=== PATIENT | female | born 1945 | race Caucasian/White ===

== ENCOUNTER → 2017-12-02 | Outpatient (CLI) | payer MEDICARE, OTHER ==
[~2017-12-02] MED LIST: ASPI-496 PO; ATOR40TA78 PO; LOSA1TAB19 PO; MULT-658 PO
== END | disposition home or self-care (01) ==
LOC: CFH 09:05
PROVIDERS: ATTEND Family Medicine
DX: Z13.820 Encounter for screening for osteoporosis (principal); M81.0 Age-related osteoporosis without current pathological fracture; N95.9 Unspecified menopausal and perimenopausal disorder
CPT/HCPCS: 77080

== ENCOUNTER → 2017-12-19 | Outpatient (CLI) | payer MEDICARE, OTHER | END | disposition home or self-care (01) | LOC: CVU 07:33 | PROVIDERS: ATTEND Internal Medicine Cardiovascular Disease | DX: I65.23 Occlusion and stenosis of bilateral carotid arteries (principal); I08.2 Rheumatic disorders of both aortic and tricuspid valves; I10 Essential (primary) hypertension; E78.5 Hyperlipidemia, unspecified | CPT/HCPCS: 93306; 93880 ==

== ENCOUNTER → 2017-12-22 | Outpatient (CLI) | payer MEDICARE, OTHER | END | disposition home or self-care (01) | LOC: RAD 12:16 | PROVIDERS: ATTEND Internal Medicine Cardiovascular Disease | DX: R06.02 Shortness of breath (principal); R01.1 Cardiac murmur, unspecified; R09.89 Other specified symptoms and signs involving the circulatory and respiratory systems | CPT/HCPCS: 78452; 93017; A9502 ==

== ENCOUNTER 2018-06-25 09:01 | Day surgery (SDC) | payer MEDICARE, OTHER ==
[~2018-06-25] VITALS: Ht 157.5 cm; Wt 69.1 kg
[2018-06-25] MEDS ORDERED: SODIUM CHLORIDE 0.9% 1,000 ML IV ONE (09:08)
[2018-06-25 09:30] VITALS: BP 123/64
[2018-06-25] MEDS ORDERED: ASPIRIN 325 MG TABLET EC PO ONE (09:30)
[2018-06-25] MEDS ORDERED: FENTANYL PF 100 MCG/2ML ONE (09:30)
[2018-06-25] MEDS ORDERED: MIDAZOLAM 1 MG/ML, 2ML ONE (09:30)
[2018-06-25] MEDS ORDERED: SULF1TAB24 PO (09:30)
[2018-06-25] MEDS ORDERED: HEPARIN 1,000 UNITS/ML, 10ML ONE (09:31)
[2018-06-25] MEDS ORDERED: VERAPAMIL 2.5 MG/ML, 2ML ONE (09:31)
[2018-06-25] MEDS ORDERED: MIDAZOLAM 1 MG/ML, 5ML ONE (09:32)
[2018-06-25] MEDS ORDERED: ASPIRIN 325 MG TABLET EC ONE (09:47)
[2018-06-25] MEDS ORDERED: SODIUM CHLORIDE 0.9% 1,000 ML IV SCH (10:43)
== END 2018-06-25 14:20 | disposition home or self-care (01) ==
LOC: OUT 09:01 → CACL 14:20
PROVIDERS: ATTEND Internal Medicine Cardiovascular Disease
DX: I25.118 Atherosclerotic heart disease of native coronary artery with other forms of angina pectoris (principal); I10 Essential (primary) hypertension; E78.00 Pure hypercholesterolemia, unspecified; E66.3 Overweight; E78.5 Hyperlipidemia, unspecified; E78.2 Mixed hyperlipidemia; R41.3 Other amnesia; I35.0 Nonrheumatic aortic (valve) stenosis; Z79.82 Long term (current) use of aspirin; Z79.899 Other long term (current) drug therapy; Z87.440 Personal history of urinary (tract) infections
CPT/HCPCS: 75716; 93454; 93567; 99156; C1769; C1894; J1644; J2250; J3010; Q9967

== ENCOUNTER 2018-09-03 04:51 | Inpatient (IN) | payer MEDICARE, OTHER ==
[2018-09-02 14:18] LABS: MICROSCOPIC NOT IND
[2018-09-02 14:26] LABS: BASOPHILS # (AUTO) 0.08 x10^3/uL (0-0.1); BASOPHILS % (AUTO) 1 % (0-1); EOSINOPHILS % (AUTO) 2 % (1-7); LYMPHOCYTES # (AUTO) 1.88 x10^3/uL (1-3.4); LYMPHOCYTES % (AUTO) 22 % (22-44); MD NO; MEAN CORPUSCULAR HEMOGLOBIN 24.6 pg (27.0-34.8); MEAN CORPUSCULAR HGB CONC 31.7 g/dL (32.4-35.8); MEAN CORPUSCULAR VOLUME 77.8 fL (80-100); MEAN PLATELET VOLUME 8.6 fL (7.4-10.4); MONOCYTES # (AUTO) 0.77 x10^3/uL (0.2-0.8); MONOCYTES % (AUTO) 9 % (2-9); NEUTROPHILS # (AUTO) 5.64 x10^3/uL (1.8-6.8); NEUTROPHILS % (AUTO) 66 % (42-75); PLATELET COUNT 313 x10^3/uL (130-400); RED BLOOD COUNT 4.53 x10^6/uL (3.82-5.3); RED CELL DISTRIBUTION WIDTH 17.7 % (9.6-15.2)
[2018-09-02 14:27] LABS: ALANINE AMINOTRANSFERASE 22 U/L (12-78); ALBUMIN 3.9 g/dL (3.4-5.0); ANION GAP 7 mmol/L (5-15); CALCIUM 9.7 mg/dL (8.5-10.1); CHLORIDE 104 mmol/L (98-107); CREATININE 1.09 mg/dL (0.55-1.02)
[2018-09-02 14:29] LABS: ALKALINE PHOSPHATASE 68 U/L (45-117); BILIRUBIN,TOTAL 0.5 mg/dL (0.2-1.0); TOTAL PROTEIN 7.6 g/dL (6.4-8.2)
[2018-09-02 14:31] LABS: INTERNATIONAL NORMALIZED RATIO 1.04 (0.93-1.1); PROTHROMBIN TIME 10.7 Seconds (9.6-11.5)
[2018-09-02 14:55] LABS: HEMOGLOBIN A1C 5.8 % (4.2-6.3)
[2018-09-03] VITALS (8 sets, daily range): BP systolic 104–159; BP diastolic 51–80
[~2018-09-03] VITALS: Ht 157.5 cm; Wt 68.5 kg
[~2018-09-03 04:51] MED LIST changes: +AMIO200T42 PO; +APIX5TAB PO; +ASPI325T17 PO; +METO25TA35 PO; +METO25TA91 PO; +NITR100C6 PO; +SULF1TAB24 PO
[2018-09-03] MEDS ORDERED: ALBUMIN HUMAN 5% 500 ML IV PRN (05:00)
[2018-09-03] MEDS ORDERED: CHLORHEXIDINE 15 ML UDC MM SCH (05:30)
[2018-09-03] MEDS ORDERED: INSULIN LISPRO 100 UNITS/ML, PEN SQ-INSULIN SCH (05:30)
[2018-09-03] MEDS ORDERED: DO NOT GIVE MC SCH (05:30)
[2018-09-03] MEDS ORDERED: FENTANYL PF 250 MCG/5ML ONE ×4 (06:40→06:41)
[2018-09-03] MEDS ORDERED: MIDAZOLAM 10MG/2 ML ONE (06:40)
[2018-09-03] MEDS ORDERED: ROCURONIUM 10MG/ML,5ML ONE ×2 (06:49)
[2018-09-03] MEDS ORDERED: EPINEPHRINE 1 MG/ML, 1ML ONE (06:49)
[2018-09-03] MEDS ORDERED: AMINOCAPROIC ACID 250 MG/ML, 20ML ONE ×2 (06:49)
[2018-09-03] MEDS ORDERED: PHENYLEPHRINE 10 MG/ML ONE (06:49)
[2018-09-03] MEDS ORDERED: CALCIUM CHLORIDE 10%, 10ML SYR ONE (06:50)
[2018-09-03] MEDS ORDERED: PROPOFOL 10 MG/ML, 20ML ONE (06:54)
[2018-09-03] MEDS ORDERED: VANCOMYCIN 1,100 MG in SODIUM CHLORIDE 0.9% 250 ML IV PRN (07:30)
[2018-09-03] MEDS ORDERED: EPINEPHRINE 2 MG in SODIUM CHLORIDE 0.9% 248 ML IV SCH (07:30)
[2018-09-03] MEDS ORDERED: REGULAR INSULIN 62.5 UNITS in SODIUM CHLORIDE 0.9% 249.375 ML IV PRN ×2 (07:30→10:46)
[2018-09-03] MEDS ORDERED: CEFUROXIME 1.5 GM in SODIUM CHLORIDE 0.9% 50 ML IVPB PRN (07:30)
[2018-09-03] MEDS ORDERED: MANNITOL PMX 20% 500 ML IVPB PRN (07:30)
[2018-09-03] MEDS ORDERED: POTASSIUM CHLORIDE 80 MEQ, SODIUM BICARBONATE 8.4% 10 MEQ, MAGNESIUM SULFATE 0.5 GM, LI... IV PRN (07:30)
[2018-09-03] MEDS ORDERED: PHENYLEPHRINE 10 MG in SODIUM CHLORIDE 0.9% 249 ML IV PRN ×2 (07:30→10:46)
[2018-09-03] MEDS ORDERED: DEXMEDETOMIDINE 200 MCG in SODIUM CHLORIDE 0.9% 48 ML IV SCH (07:30)
[2018-09-03] MEDS ORDERED: PROTAMINE SULFATE 10 MG/ML, 25ML ONE ×2 (08:52)
[2018-09-03] MEDS ORDERED: SODIUM CHLORIDE FLUSH 10ML SYR IVF SCH (09:00)
[2018-09-03] MEDS ORDERED: MUPIROCIN OINT 2%, 22GM TP SCH (09:00)
[2018-09-03] MEDS ORDERED: DOBUTAMINE 250 MG in SODIUM CHLORIDE 0.9% 230 ML IV PRN (10:46)
[2018-09-03] MEDS ORDERED: NITROGLYCERIN/D5W PMX 250 ML IV PRN (10:46)
[2018-09-03] MEDS ORDERED: DEXMEDETOMIDINE 200 MCG in SODIUM CHLORIDE 0.9% 48 ML IV PRN (10:46)
[2018-09-03] MEDS ORDERED: VASOPRESSIN 50 UNIT in SODIUM CHLORIDE 0.9% 247.5 ML IV PRN (10:46)
[2018-09-03] MEDS ORDERED: ACETAMINOPHEN 650 MG SUPP PR PRN (11:00)
[2018-09-03] MEDS ORDERED: SODIUM BICARB 8.4%, 50ML SYRINGE IV PRN (11:00)
[2018-09-03] MEDS ORDERED: MORPHINE SULFATE 4 MG/ML, 1ML IVPush PRN (11:00)
[2018-09-03] MEDS ORDERED: BISACODYL 5 MG EC TABLET PO PRN (11:00)
[2018-09-03] MEDS ORDERED: EPINEPHRINE 2 MG in SODIUM CHLORIDE 0.9% 248 ML IV PRN (11:00)
[2018-09-03] MEDS: KSCALE TO 4.5 IV SCH ×2 (11:00→18:05)
[2018-09-03] MEDS ORDERED: ONDANSETRON 2MG/ML, 2ML IVPush PRN (11:00)
[2018-09-03] MEDS ORDERED: INSULIN REGULAR 100 UNITS/ML, 3ML VIAL IVPush PRN (11:00)
[2018-09-03] MEDS ORDERED: BISACODYL 10 MG SUPP PR PRN (11:00)
[2018-09-03] MEDS ORDERED: PROCHLORPERAZINE 5 MG/ML, 2ML IVPush PRN (11:00)
[2018-09-03] MEDS ORDERED: DEXTROSE 4 GM TAB.CHEW PO PRN (11:00)
[2018-09-03] MEDS ORDERED: DEXTROSE 50%, 50ML SYRINGE IVPush PRN (11:00)
[2018-09-03] MEDS ORDERED: GLUCAGON 1 MG IM PRN (11:00)
[2018-09-03] MEDS ORDERED: SODIUM BICARB 8.4%, 50ML SYRINGE ONE (11:15)
[2018-09-03] MEDS ORDERED: LIDOCAINE 2% 100MG/5ML SYRINGE ONE (11:15)
[2018-09-03] MEDS ORDERED: HEPARIN 1,000 UNITS/ML, 30ML ONE (11:16)
[2018-09-03] MEDS ORDERED: methylPREDNISolone SOD SUCC 125 MG/2 ML ONE (11:16)
[2018-09-03] MEDS ORDERED: ALBUMIN HUMAN 25% 50 ML ONE (11:16)
[2018-09-03 11:17] LABS: GLUCOSE BY BLOOD GAS ANALYZER 136 mg/dL (70-110); HEMOGLOBIN BY BLOOD GAS ANALYZ 8.3 g/dL (14.0-18.0); POTASSIUM BY BLOOD GAS ANALYZR 3.4 mmol/L (3.6-5.5)
[2018-09-03 11:20] LABS: FIO2 60 %
[2018-09-03] MEDS ORDERED: FENTANYL PF 100 MCG/2ML ONE (11:25)
[2018-09-03] MEDS: FENTANYL PF 100 MCG/2ML IVPush PRN ×3 (11:26→18:02)
[2018-09-03 11:30] LABS: INTERNATIONAL NORMALIZED RATIO 1.55 (0.93-1.1); PROTHROMBIN TIME 15.8 Seconds (9.6-11.5)
[2018-09-03] MEDS ORDERED: SODIUM CHLORIDE 0.9% 1,000 ML IV PRN (12:00)
[2018-09-03] MEDS: MAGNESIUM SULFATE 1 GM in SODIUM CHLORIDE 0.9% 50 ML IVPB SCH (12:11)
[2018-09-03] MEDS: DOCUSATE 100 MG CAPSULE PO SCH ×2 (12:14→21:00)
[2018-09-03] MEDS: INSULIN LISPRO 100 UNITS/ML, PEN SQ-INSULIN SCH ×3 (12:14→21:00)
[2018-09-03] MEDS ORDERED: POTASSIUM CHLORIDE PMX 100 ML IVPB ONE (12:30)
[2018-09-03] MEDS: LACTATED RINGERS 1,000 ML IV PRN ×2 (14:15→16:22)
[2018-09-03] MEDS: CEFUROXIME 1.5 GM in SODIUM CHLORIDE 0.9% 50 ML IVPB SCH (16:53)
[2018-09-03] MEDS ORDERED: WARFARIN 5 MG TABLET PO-COUM ONE (18:00)
[2018-09-03] MEDS ORDERED: POTASSIUM CHLORIDE PMX 100 ML IV ONE (18:00)
[2018-09-03] MEDS: VANCOMYCIN PMX 1GM/200ML 200 ML IVPB SCH (18:05)
[2018-09-03] MEDS: OXYcodone IR 5MG TABLET PO PRN (18:40)
[2018-09-03] MEDS: SODIUM CHLORIDE FLUSH 10ML SYR IVF SCH (21:29)
[2018-09-03] MEDS: MUPIROCIN OINT 2%, 22GM NAS SCH (21:29)
[2018-09-04] MEDS: OXYcodone IR 5MG TABLET PO PRN ×2 (00:10→10:20)
[2018-09-04] MEDS ORDERED: ALBUMIN HUMAN 5% 500 ML IV ONE (01:30)
[2018-09-04 04:00] VITALS: BP 112/46
[2018-09-04 04:48] LABS: BASOPHILS # (AUTO) 0.02 x10^3/uL (0-0.1); BASOPHILS % (AUTO) 0 % (0-1); EOSINOPHILS % (AUTO) 0 % (1-7); LYMPHOCYTES # (AUTO) 0.76 x10^3/uL (1-3.4); LYMPHOCYTES % (AUTO) 4 % (22-44); MD NO; MEAN CORPUSCULAR HEMOGLOBIN 25.9 pg (27.0-34.8); MEAN CORPUSCULAR HGB CONC 32.5 g/dL (32.4-35.8); MEAN CORPUSCULAR VOLUME 79.8 fL (80-100); MEAN PLATELET VOLUME 8.5 fL (7.4-10.4); MONOCYTES % (AUTO) 8 % (2-9); NEUTROPHILS # (AUTO) 15.16 x10^3/uL (1.8-6.8); NEUTROPHILS % (AUTO) 87 % (42-75); PLATELET COUNT 170 x10^3/uL (130-400); RED BLOOD COUNT 3.12 x10^6/uL (3.82-5.3)
[2018-09-04 04:56] LABS: ALBUMIN 3.3 g/dL (3.4-5.0); ANION GAP 8 mmol/L (5-15); CALCIUM 7.8 mg/dL (8.5-10.1); CHLORIDE 113 mmol/L (98-107); CREATININE 0.85 mg/dL (0.55-1.02)
[2018-09-04] MEDS: CEFUROXIME 1.5 GM in SODIUM CHLORIDE 0.9% 50 ML IVPB SCH (05:23)
[2018-09-04] MEDS ORDERED: FUROSEMIDE 40 MG/4 ML IV ONE (05:30)
[2018-09-04 05:43] LABS: INTERNATIONAL NORMALIZED RATIO 1.13 (0.93-1.1); PROTHROMBIN TIME 11.6 Seconds (9.6-11.5)
[2018-09-04] MEDS: KSCALE TO 4.5 IV SCH ×2 (06:00)
[2018-09-04] MEDS: VANCOMYCIN PMX 1GM/200ML 200 ML IVPB SCH (06:02)
[2018-09-04] MEDS: INSULIN LISPRO 100 UNITS/ML, PEN SQ-INSULIN SCH ×5 (07:03→22:30)
[2018-09-04] MEDS: WARFARIN BIOPROSTHETIC VALVE PROTOCOL 2-3 XX SCH (09:00)
[2018-09-04] MEDS: POTASSIUM CHLORIDE 20 MEQ TAB.ER.PRT PO SCH ×2 (09:09→18:14)
[2018-09-04] MEDS: ASPIRIN 81 MG TABLET EC PO SCH (09:09)
[2018-09-04] MEDS: MUPIROCIN OINT 2%, 22GM NAS SCH ×2 (09:10→20:21)
[2018-09-04] MEDS: SODIUM CHLORIDE FLUSH 10ML SYR IVF SCH ×2 (09:10→20:21)
[2018-09-04] MEDS: DOCUSATE 100 MG CAPSULE PO SCH ×2 (09:10→20:20)
[2018-09-04] MEDS: MAGNESIUM SULFATE 1 GM in SODIUM CHLORIDE 0.9% 50 ML IVPB SCH (14:16)
[2018-09-04] MEDS: FUROSEMIDE 40 MG/4 ML IV SCH (15:18)
[2018-09-04] MEDS ORDERED: WARFARIN 5 MG TABLET PO-COUM ONE (18:00)
[2018-09-04] MEDS: ACETAMINOPHEN 325 MG TABLET PO PRN (20:20)
[2018-09-05] MEDS: INSULIN LISPRO 100 UNITS/ML, PEN SQ-INSULIN SCH ×6 (02:30→20:51)
[2018-09-05 04:00] VITALS: BP 118/48
[2018-09-05] MEDS: ACETAMINOPHEN 325 MG TABLET PO PRN ×2 (05:19→12:19)
[2018-09-05 05:44] LABS: MEAN CORPUSCULAR HGB CONC 32.8 g/dL (32.4-35.8)
[2018-09-05 05:48] LABS: INTERNATIONAL NORMALIZED RATIO 1.1 (0.93-1.1); PROTHROMBIN TIME 11.3 Seconds (9.6-11.5)
[2018-09-05 05:50] LABS: ANION GAP 9 mmol/L (5-15); CALCIUM 8.6 mg/dL (8.5-10.1); CHLORIDE 105 mmol/L (98-107); CREATININE 0.93 mg/dL (0.55-1.02)
[2018-09-05 06:14] LABS: MEAN CORPUSCULAR HEMOGLOBIN 25.8 pg (27.0-34.8); MEAN CORPUSCULAR VOLUME 78.6 fL (80-100); MEAN PLATELET VOLUME 9.3 fL (7.4-10.4); PLATELET COUNT 159 x10^3/uL (130-400); RED BLOOD COUNT 3.22 x10^6/uL (3.82-5.3); RED CELL DISTRIBUTION WIDTH 19.3 % (9.6-15.2)
[2018-09-05 06:42] LABS: MD YES
[2018-09-05 06:44] LABS: BANDS%(MANUAL) 5 % (0-7); LYMPH#(MANUAL) 0.36 x10^3/uL (1-3.4); LYMPHS% (MANUAL) 2 % (22-44); MONOS#(MANUAL) 2.16 x10^3/uL (0.3-2.7); MONOS% (MANUAL) 12 % (2-9); SEG#(MANUAL) 14.58 x10^3/uL (1.8-6.8); SEGS% (MANUAL) 81 % (42-75)
[2018-09-05 06:46] LABS: ANISOCYTOSIS 1+
[2018-09-05 06:47] LABS: <PLATELET ESTIMATE> ADEQUATE; <PLT MORPHOLOGY> NORMAL PLT MORPH; OVALOCYTES 1+
[2018-09-05] MEDS: POTASSIUM CHLORIDE 20 MEQ TAB.ER.PRT PO SCH ×2 (08:13→18:28)
[2018-09-05] MEDS: FUROSEMIDE 40 MG/4 ML IV SCH ×2 (08:13→16:46)
[2018-09-05] MEDS: ASPIRIN 81 MG TABLET EC PO SCH (08:13)
[2018-09-05] MEDS: DOCUSATE 100 MG CAPSULE PO SCH ×2 (08:13→20:08)
[2018-09-05] MEDS: MUPIROCIN OINT 2%, 22GM NAS SCH ×2 (08:14→20:08)
[2018-09-05] MEDS: SODIUM CHLORIDE FLUSH 10ML SYR IVF SCH ×2 (08:14→20:09)
[2018-09-05] MEDS: WARFARIN BIOPROSTHETIC VALVE PROTOCOL 2-3 XX SCH (08:27)
[2018-09-05] MEDS ORDERED: POTASSIUM CHLORIDE 20 MEQ TAB.ER.PRT PO ONE (08:30)
[2018-09-05] MEDS: MAGNESIUM SULFATE 1 GM in SODIUM CHLORIDE 0.9% 50 ML IVPB SCH (13:32)
[2018-09-05] MEDS ORDERED: WARFARIN 7.5 MG TABLET PO-COUM ONE (18:00)
[2018-09-06 03:40] LABS: MEAN CORPUSCULAR HGB CONC 32.6 g/dL (32.4-35.8); MEAN CORPUSCULAR VOLUME 79.8 fL (80-100); MEAN PLATELET VOLUME 8.8 fL (7.4-10.4); PLATELET COUNT 165 x10^3/uL (130-400); RED BLOOD COUNT 3.15 x10^6/uL (3.82-5.3)
[2018-09-06 03:52] LABS: ANION GAP 8 mmol/L (5-15); CALCIUM 8.2 mg/dL (8.5-10.1); CHLORIDE 103 mmol/L (98-107); CREATININE 0.75 mg/dL (0.55-1.02)
[2018-09-06 04:00] VITALS: BP 127/58
[2018-09-06 04:18] LABS: BASOPHILS # (AUTO) 0.05 x10^3/uL (0-0.1); BASOPHILS % (AUTO) 0 % (0-1); EOSINOPHILS # (AUTO) 0.05 x10^3/uL (0-0.4); EOSINOPHILS % (AUTO) 0 % (1-7); LYMPHOCYTES # (AUTO) 1.63 x10^3/uL (1-3.4); LYMPHOCYTES % (AUTO) 11 % (22-44); MD SCAN; MONOCYTES # (AUTO) 1.65 x10^3/uL (0.2-0.8); MONOCYTES % (AUTO) 11 % (2-9); NEUTROPHILS # (AUTO) 12.07 x10^3/uL (1.8-6.8); NEUTROPHILS % (AUTO) 78 % (42-75)
[2018-09-06] MEDS: INSULIN LISPRO 100 UNITS/ML, PEN SQ-INSULIN SCH (07:37)
[2018-09-06] MEDS: FUROSEMIDE 40 MG/4 ML IV SCH ×2 (08:01→18:04)
[2018-09-06] MEDS: POTASSIUM CHLORIDE 20 MEQ TAB.ER.PRT PO SCH ×2 (08:02→18:04)
[2018-09-06] MEDS: DOCUSATE 100 MG CAPSULE PO SCH ×2 (08:02→21:21)
[2018-09-06] MEDS: MUPIROCIN OINT 2%, 22GM NAS SCH ×2 (08:02→21:00)
[2018-09-06] MEDS: ASPIRIN 81 MG TABLET EC PO SCH (08:02)
[2018-09-06] MEDS: SODIUM CHLORIDE FLUSH 10ML SYR IVF SCH ×2 (08:03→21:24)
[2018-09-06] MEDS: WARFARIN BIOPROSTHETIC VALVE PROTOCOL 2-3 XX SCH (09:00)
[2018-09-06 09:27] LABS: INTERNATIONAL NORMALIZED RATIO 1.27 (0.93-1.1)
[2018-09-06] MEDS ORDERED: WARFARIN 7.5 MG TABLET PO-COUM ONE (18:00)
[2018-09-07 04:18] LABS: BASOPHILS # (AUTO) 0.06 x10^3/uL (0-0.1); BASOPHILS % (AUTO) 1 % (0-1); EOSINOPHILS # (AUTO) 0.26 x10^3/uL (0-0.4); EOSINOPHILS % (AUTO) 2 % (1-7); LYMPHOCYTES % (AUTO) 11 % (22-44); MD NO; MEAN CORPUSCULAR HEMOGLOBIN 25.7 pg (27.0-34.8); MEAN CORPUSCULAR HGB CONC 32.4 g/dL (32.4-35.8); MEAN CORPUSCULAR VOLUME 79.4 fL (80-100); MEAN PLATELET VOLUME 8.6 fL (7.4-10.4); MONOCYTES # (AUTO) 1.21 x10^3/uL (0.2-0.8); MONOCYTES % (AUTO) 11 % (2-9); NEUTROPHILS # (AUTO) 7.93 x10^3/uL (1.8-6.8); NEUTROPHILS % (AUTO) 74 % (42-75); PLATELET COUNT 201 x10^3/uL (130-400); RED BLOOD COUNT 3.31 x10^6/uL (3.82-5.3)
[2018-09-07 04:19] LABS: INTERNATIONAL NORMALIZED RATIO 1.96 (0.93-1.1); PROTHROMBIN TIME 19.9 Seconds (9.6-11.5)
[2018-09-07 04:21] VITALS: BP 131/52
[2018-09-07 04:21] LABS: ANION GAP 6 mmol/L (5-15); CALCIUM 8.2 mg/dL (8.5-10.1); CHLORIDE 102 mmol/L (98-107); CREATININE 0.76 mg/dL (0.55-1.02)
[2018-09-07] MEDS: WARFARIN BIOPROSTHETIC VALVE PROTOCOL 2-3 XX SCH (07:58)
[2018-09-07] MEDS: FUROSEMIDE 40 MG/4 ML IV SCH (08:23)
[2018-09-07] MEDS: POTASSIUM CHLORIDE 20 MEQ TAB.ER.PRT PO SCH (08:26)
[2018-09-07] MEDS: ASPIRIN 81 MG TABLET EC PO SCH (08:27)
[2018-09-07] MEDS: DOCUSATE 100 MG CAPSULE PO SCH ×2 (08:27→21:09)
[2018-09-07] MEDS: MUPIROCIN OINT 2%, 22GM NAS SCH ×2 (08:28→21:10)
[2018-09-07] MEDS: SODIUM CHLORIDE FLUSH 10ML SYR IVF SCH ×3 (08:29→21:09)
[2018-09-07] MEDS ORDERED: SODIUM CHLORIDE 0.9% 1,000ML IVBOLUS ONE (12:00)
[2018-09-07] MEDS ORDERED: WARFARIN 5 MG TABLET PO-COUM ONE (18:00)
[2018-09-08 04:00] VITALS: BP 120/60
[2018-09-08 04:42] LABS: MEAN CORPUSCULAR HEMOGLOBIN 25.8 pg (27.0-34.8); MEAN CORPUSCULAR HGB CONC 32.4 g/dL (32.4-35.8); MEAN CORPUSCULAR VOLUME 79.6 fL (80-100); MEAN PLATELET VOLUME 8.7 fL (7.4-10.4); PLATELET COUNT 228 x10^3/uL (130-400); RED BLOOD COUNT 3.13 x10^6/uL (3.82-5.3); RED CELL DISTRIBUTION WIDTH 19.2 % (9.6-15.2)
[2018-09-08 04:53] LABS: ANION GAP 6 mmol/L (5-15); CALCIUM 8.2 mg/dL (8.5-10.1); CHLORIDE 103 mmol/L (98-107); CREATININE 0.91 mg/dL (0.55-1.02)
[2018-09-08 05:14] LABS: INTERNATIONAL NORMALIZED RATIO 3.69 (0.93-1.1)
[2018-09-08 05:59] LABS: BASOPHILS # (AUTO) 0.05 x10^3/uL (0-0.1); BASOPHILS % (AUTO) 1 % (0-1); EOSINOPHILS # (AUTO) 0.21 x10^3/uL (0-0.4); EOSINOPHILS % (AUTO) 2 % (1-7); LYMPHOCYTES # (AUTO) 1.59 x10^3/uL (1-3.4); LYMPHOCYTES % (AUTO) 15 % (22-44); MD SCAN; MONOCYTES # (AUTO) 1.51 x10^3/uL (0.2-0.8); MONOCYTES % (AUTO) 14 % (2-9); NEUTROPHILS # (AUTO) 7.22 x10^3/uL (1.8-6.8); NEUTROPHILS % (AUTO) 68 % (42-75)
[2018-09-08] MEDS ORDERED: HOLD COUMADIN MC PRN (08:00)
[2018-09-08] MEDS: WARFARIN BIOPROSTHETIC VALVE PROTOCOL 2-3 XX SCH (08:17)
[2018-09-08] MEDS: SODIUM CHLORIDE FLUSH 10ML SYR IVF SCH ×4 (09:35→20:29)
[2018-09-08] MEDS: ASPIRIN 81 MG TABLET EC PO SCH (09:35)
[2018-09-08] MEDS: MUPIROCIN OINT 2%, 22GM NAS SCH (09:35)
[2018-09-08] MEDS: DOCUSATE 100 MG CAPSULE PO SCH ×2 (09:35→20:29)
[2018-09-08 11:53] VITALS: BP 114/74
[2018-09-08 20:00] VITALS: BP 133/79
[2018-09-09 01:51] VITALS: BP 134/76
[2018-09-09 05:19] LABS: INTERNATIONAL NORMALIZED RATIO 2.91 (0.93-1.1); PROTHROMBIN TIME 29.4 Seconds (9.6-11.5)
[2018-09-09 05:24] LABS: CALCIUM 8.7 mg/dL (8.5-10.1); CHLORIDE 105 mmol/L (98-107)
[2018-09-09 05:27] LABS: ANION GAP 7 mmol/L (5-15); CREATININE 0.78 mg/dL (0.55-1.02)
[2018-09-09 07:18] VITALS: BP 130/79
[2018-09-09] MEDS: DOCUSATE 100 MG CAPSULE PO SCH ×2 (08:23→21:30)
[2018-09-09] MEDS: ASPIRIN 81 MG TABLET EC PO SCH (08:23)
[2018-09-09] MEDS: WARFARIN BIOPROSTHETIC VALVE PROTOCOL 2-3 XX SCH (08:25)
[2018-09-09] MEDS: SODIUM CHLORIDE FLUSH 10ML SYR IVF SCH ×3 (08:25→21:30)
[2018-09-09 14:10] VITALS: BP 135/82
[2018-09-09] MEDS ORDERED: WARFARIN 5 MG TABLET PO-COUM ONE (18:00)
[2018-09-09 18:39] VITALS: BP 130/71
[2018-09-10 01:00] VITALS: BP_SYST 125; BP_DIAS 71; BP_DIAS 92
[2018-09-10] MEDS: ACETAMINOPHEN 325 MG TABLET PO PRN ×3 (01:19→20:04)
[2018-09-10 05:51] LABS: INTERNATIONAL NORMALIZED RATIO 2.48 (0.93-1.1); PROTHROMBIN TIME 25.3 Seconds (9.6-11.5)
[2018-09-10 05:55] LABS: ANION GAP 7 mmol/L (5-15); CALCIUM 8.6 mg/dL (8.5-10.1); CHLORIDE 106 mmol/L (98-107)
[2018-09-10 07:13] VITALS: BP 133/82
[2018-09-10] MEDS: DOCUSATE 100 MG CAPSULE PO SCH ×2 (07:58→20:04)
[2018-09-10] MEDS: ASPIRIN 81 MG TABLET EC PO SCH (07:58)
[2018-09-10] MEDS ORDERED: FUROSEMIDE 20 MG/2 ML IVPush SCH (08:00)
[2018-09-10 08:02] VITALS: BP 135/74
[2018-09-10] MEDS: SODIUM CHLORIDE FLUSH 10ML SYR IVF SCH ×2 (08:02→20:04)
[2018-09-10] MEDS: WARFARIN BIOPROSTHETIC VALVE PROTOCOL 2-3 XX SCH (09:00)
[2018-09-10] MEDS ORDERED: LIDOCAINE-MPF 1%, 5ML ONE (10:13)
[2018-09-10] MEDS: GUAIFENESIN 200 MG TABLET PO SCH ×3 (11:23→20:03)
[2018-09-10 15:14] VITALS: BP 138/79
[2018-09-10] MEDS ORDERED: WARFARIN 5 MG TABLET PO-COUM SCH (18:00)
[2018-09-10 19:03] VITALS: BP 105/51
[2018-09-10] MEDS ORDERED: AMIODARONE 150 MG in DEXTROSE 5% 100 ML IV ONE (23:30)
[2018-09-10] MEDS ORDERED: FILTER 0.22 MICRON IV PRN (23:45)
[2018-09-11 00:33] VITALS: BP 116/60
[2018-09-11 00:35] VITALS: BP 121/65
[2018-09-11 05:27] LABS: INTERNATIONAL NORMALIZED RATIO 2.68 (0.93-1.1); PROTHROMBIN TIME 27.3 Seconds (9.6-11.5)
[2018-09-11 05:29] LABS: ANION GAP 7 mmol/L (5-15); CALCIUM 8.6 mg/dL (8.5-10.1); CHLORIDE 105 mmol/L (98-107); CREATININE 0.75 mg/dL (0.55-1.02)
[2018-09-11] MEDS: GUAIFENESIN 200 MG TABLET PO SCH (05:49)
[2018-09-11 07:16] VITALS: BP 113/64
[2018-09-11] MEDS ORDERED: GUAI200T3 PO (08:33)
[2018-09-11] MEDS ORDERED: WARF5TAB PO-COUM (08:33)
[2018-09-11] MEDS ORDERED: DOCU-131 PO (08:33)
[2018-09-11] MEDS ORDERED: ASPI-621 PO (08:33)
[2018-09-11] MEDS: ASPIRIN 81 MG TABLET EC PO SCH (08:38)
[2018-09-11] MEDS ORDERED: AMIODARONE 200 MG TABLET PO SCH (09:00)
[2018-09-11] MEDS ORDERED: TRAM-47 PO (12:28)
[2018-09-11] MEDS ORDERED: WARFARIN 5 MG TABLET PO-COUM ONE (18:00)
== END 2018-09-11 12:58 | disposition home health service (06) | DRG 219 ==
LOC: 5SO 04:51 → CSU 09:59 → CCU 09-07 17:30 → 5SO 09-08 11:42 → DCLOUNGE 09-11 12:17
PROVIDERS: ADMIT Thoracic Surgery (Cardiothoracic Vascular Surgery); ATTEND Thoracic Surgery (Cardiothoracic Vascular Surgery)
PROC: 02580ZZ Destruction of Conduction Mechanism, Open Approach (ICD-10-PCS; 2018-09-03)
PROC: 5A1221Z Performance of Cardiac Output, Continuous (ICD-10-PCS; 2018-09-03)
PROC: 02B70ZK Excision of Left Atrial Appendage, Open Approach (ICD-10-PCS; 2018-09-03)
PROC: B24BZZ4 Ultrasonography of Heart with Aorta, Transesophageal (ICD-10-PCS; 2018-09-03)
PROC: 30233M1 Transfusion of Nonautologous Plasma Cryoprecipitate into Peripheral Vein, Percutaneous Approach (ICD-10-PCS; 2018-09-03)
PROC: 30233N1 Transfusion of Nonautologous Red Blood Cells into Peripheral Vein, Percutaneous Approach (ICD-10-PCS; 2018-09-03)
PROC: 30233R1 Transfusion of Nonautologous Platelets into Peripheral Vein, Percutaneous Approach (ICD-10-PCS; 2018-09-03)
PROC: 03HY32Z Insertion of Monitoring Device into Upper Artery, Percutaneous Approach (ICD-10-PCS; 2018-09-03)
PROC: 02HV33Z Insertion of Infusion Device into Superior Vena Cava, Percutaneous Approach (ICD-10-PCS; 2018-09-03)
PROC: B548ZZA Ultrasonography of Superior Vena Cava, Guidance (ICD-10-PCS; 2018-09-03)
PROC: X2RF032 Replacement of Aortic Valve using Zooplastic Tissue, Rapid Deployment Technique, Open Approach, New Technology Group 2 (ICD-10-PCS; principal; 2018-09-03 07:30)
PROC: 0W993ZZ Drainage of Right Pleural Cavity, Percutaneous Approach (ICD-10-PCS; 2018-09-10)
DX: I35.0 Nonrheumatic aortic (valve) stenosis (principal); J96.00 Acute respiratory failure, unspecified whether with hypoxia or hypercapnia; J98.11 Atelectasis; Q23.1 Congenital insufficiency of aortic valve; E78.5 Hyperlipidemia, unspecified; I11.0 Hypertensive heart disease with heart failure; I25.10 Atherosclerotic heart disease of native coronary artery without angina pectoris; I95.9 Hypotension, unspecified; I48.0 Paroxysmal atrial fibrillation; I70.0 Atherosclerosis of aorta; I50.9 Heart failure, unspecified; I71.2 Thoracic aortic aneurysm, without rupture; Z90.710 Acquired absence of both cervix and uterus
CPT/HCPCS: 32555; 36415; 36600; 71045; 71046; 80048; 80053; 81003; 82040; 82330; 82800; 82803; 82810; 82947; 82962; 83036; 83735; 84132; 84295; 85014; 85018; 85025; 85049; 85347; 85610; 85730; 86850; 86900; 86923; 87040; 87081; 87086; 88304; 88305; 88311; 93005; 93312; 93321; 93325; 93880; 94002; 94150; 94640; C1768; G0378; J0171; J0697; J1644; J1815; J1940; J2250; J2405; J2704; J2720; J3010; J3370; J3475; J3480; J3490; P9045; P9047; C1751; C1760; C1762; C2618; J0282; J2370; J2930; J7030; J7050; J7120; P9012; P9016; P9035

== ENCOUNTER 2018-09-23 09:31 | Inpatient (IN) | payer MEDICARE, OTHER ==
[~2018-09-23] VITALS: Ht 157.5 cm; Wt 73.8 kg
[~2018-09-23 09:31] MED LIST changes: +ASPI81TA45 PO; +DOCU-131 PO; +GUAI200T3 PO; +TRAM-47 PO; +WARF5TAB PO-COUM
[2018-09-23 10:36] LABS: INTERNATIONAL NORMALIZED RATIO 1.68 (0.93-1.1); PROTHROMBIN TIME 17.3 Seconds (9.6-11.5)
[2018-09-23 10:40] LABS: MEAN CORPUSCULAR HEMOGLOBIN 25.5 pg (27.0-34.8); MEAN CORPUSCULAR HGB CONC 32.1 g/dL (32.4-35.8); MEAN CORPUSCULAR VOLUME 79.3 fL (80-100); MEAN PLATELET VOLUME 7.2 fL (7.4-10.4); PLATELET COUNT 736 x10^3/uL (130-400); RED CELL DISTRIBUTION WIDTH 19.1 % (9.6-15.2)
[2018-09-23 10:49] LABS: FREE T4 (FREE THYROXINE) 1.75 ng/dL (0.76-1.46); THYROID STIMULATING HORMONE 0.829 mIU/L (0.358-3.740)
[2018-09-23 11:06] LABS: ALANINE AMINOTRANSFERASE 44 U/L (12-78); ALBUMIN 3.1 g/dL (3.4-5.0); ANION GAP 10 mmol/L (5-15); CALCIUM 8.8 mg/dL (8.5-10.1); CHLORIDE 108 mmol/L (98-107); CREATININE 0.98 mg/dL (0.55-1.02)
[2018-09-23 11:09] LABS: ALKALINE PHOSPHATASE 106 U/L (45-117); BASOPHILS # (AUTO) 0.05 x10^3/uL (0-0.1); BASOPHILS % (AUTO) 1 % (0-1); BILIRUBIN,TOTAL 0.4 mg/dL (0.2-1.0); EOSINOPHILS # (AUTO) 0.22 x10^3/uL (0-0.4); EOSINOPHILS % (AUTO) 3 % (1-7); LYMPHOCYTES % (AUTO) 17 % (22-44); MD SCAN; MONOCYTES # (AUTO) 0.84 x10^3/uL (0.2-0.8); MONOCYTES % (AUTO) 10 % (2-9); NEUTROPHILS # (AUTO) 5.82 x10^3/uL (1.8-6.8); NEUTROPHILS % (AUTO) 70 % (42-75)
[2018-09-23 11:42] LABS: MICROSCOPIC AUTO
[2018-09-23 11:45] LABS: CULTURE INDICATED? YES
[2018-09-23 13:11] VITALS: BP 152/76
[2018-09-23] MEDS ORDERED: POLYETHYLENE GLYCOL 17 GM PACKET PO PRN (13:30)
[2018-09-23] MEDS ORDERED: BISACODYL 10 MG SUPP PR PRN (13:30)
[2018-09-23] MEDS ORDERED: DOCUSATE 100 MG CAPSULE PO PRN (13:30)
[2018-09-23] MEDS ORDERED: ONDANSETRON ODT 4 MG PO PRN (13:30)
[2018-09-23] MEDS ORDERED: ACETAMINOPHEN 325 MG TABLET PO PRN (13:30)
[2018-09-23] MEDS ORDERED: ENALAPRILAT 1.25 MG/ML, 2ML IVPush PRN (13:30)
[2018-09-23] MEDS ORDERED: hydrALAzine 20 MG/ML, 1ML IVPush PRN (13:30)
[2018-09-23] MEDS ORDERED: LABETALOL 5MG/ML, 20ML IVPush PRN (13:30)
[2018-09-23 14:21] LABS: BASOPHILS # (AUTO) 0.05 x10^3/uL (0-0.1); BASOPHILS % (AUTO) 1 % (0-1); EOSINOPHILS # (AUTO) 0.15 x10^3/uL (0-0.4); EOSINOPHILS % (AUTO) 2 % (1-7); LYMPHOCYTES # (AUTO) 1.82 x10^3/uL (1-3.4); LYMPHOCYTES % (AUTO) 25 % (22-44); MD NO; MEAN CORPUSCULAR HEMOGLOBIN 25.2 pg (27.0-34.8); MEAN CORPUSCULAR HGB CONC 32.2 g/dL (32.4-35.8); MEAN CORPUSCULAR VOLUME 78.4 fL (80-100); MEAN PLATELET VOLUME 7.2 fL (7.4-10.4); MONOCYTES # (AUTO) 0.64 x10^3/uL (0.2-0.8); MONOCYTES % (AUTO) 9 % (2-9); NEUTROPHILS # (AUTO) 4.54 x10^3/uL (1.8-6.8); NEUTROPHILS % (AUTO) 63 % (42-75); PLATELET COUNT 666 x10^3/uL (130-400); RED BLOOD COUNT 2.93 x10^6/uL (3.82-5.3); RED CELL DISTRIBUTION WIDTH 19.3 % (9.6-15.2)
[2018-09-23 14:22] LABS: HEMOGRAM NOTE RECHECKED
[2018-09-23 14:41] VITALS: BP 132/78
[2018-09-23 14:42] VITALS: BP 146/76
[2018-09-23 14:43] VITALS: BP 124/73
[2018-09-23] MEDS ORDERED: HEPARIN 5,000 UNITS/ML, 1ML IV ONE (15:00)
[2018-09-23] MEDS: GUAIFENESIN 200 MG TABLET PO SCH ×2 (16:00→17:50)
[2018-09-23] MEDS: HEPARIN 25,000 UNITS/500ML PMX 500 ML IV PRN (16:11)
[2018-09-23] MEDS ORDERED: WARFARIN 3 MG TABLET PO-COUM ONE (18:00)
[2018-09-23] MEDS ORDERED: SODIUM CHLORIDE 0.9% 1,000 ML IV SCH (18:00)
[2018-09-23 20:23] VITALS: BP 125/76
[2018-09-23] MEDS: ATORVASTATIN 20 MG TABLET PO SCH (20:50)
[2018-09-23] MEDS: HEPARIN 5,000 UNITS/ML, 1ML IV PRN (22:43)
[2018-09-24 01:41] VITALS: BP_SYST 129; BP_SYST 135; BP_SYST 144; BP_DIAS 75; BP_DIAS 76; BP_DIAS 79
[2018-09-24] MEDS: GUAIFENESIN 200 MG TABLET PO SCH ×4 (05:09→21:43)
[2018-09-24 05:30] LABS: BASOPHILS # (AUTO) 0.06 x10^3/uL (0-0.1); BASOPHILS % (AUTO) 1 % (0-1); EOSINOPHILS # (AUTO) 0.23 x10^3/uL (0-0.4); EOSINOPHILS % (AUTO) 3 % (1-7); LYMPHOCYTES # (AUTO) 1.91 x10^3/uL (1-3.4); LYMPHOCYTES % (AUTO) 26 % (22-44); MD NO; MEAN CORPUSCULAR HEMOGLOBIN 25.5 pg (27.0-34.8); MEAN CORPUSCULAR HGB CONC 32.4 g/dL (32.4-35.8); MEAN CORPUSCULAR VOLUME 78.7 fL (80-100); MEAN PLATELET VOLUME 7.1 fL (7.4-10.4); MONOCYTES # (AUTO) 0.67 x10^3/uL (0.2-0.8); MONOCYTES % (AUTO) 9 % (2-9); NEUTROPHILS # (AUTO) 4.51 x10^3/uL (1.8-6.8); NEUTROPHILS % (AUTO) 61 % (42-75); PLATELET COUNT 596 x10^3/uL (130-400); RED BLOOD COUNT 2.96 x10^6/uL (3.82-5.3); RED CELL DISTRIBUTION WIDTH 19.1 % (9.6-15.2)
[2018-09-24 05:33] LABS: INTERNATIONAL NORMALIZED RATIO 1.87 (0.93-1.1); PROTHROMBIN TIME 19.2 Seconds (9.6-11.5)
[2018-09-24 05:38] LABS: ANION GAP 8 mmol/L (5-15); CALCIUM 8.5 mg/dL (8.5-10.1); CHLORIDE 107 mmol/L (98-107); CREATININE 0.76 mg/dL (0.55-1.02)
[2018-09-24 06:05] LABS: % IRON SATURATION 4 % (20-55); FOLATE LEVEL 16.7 ng/mL (3.1-17.5); IRON LEVEL 12 mcg/dL (50-170); TOTAL IRON BINDING CAPACITY 294 mcg/dL (250-450)
[2018-09-24] MEDS: HEPARIN 5,000 UNITS/ML, 1ML IV PRN ×2 (06:05→19:43)
[2018-09-24 08:04] VITALS: BP 125/71
[2018-09-24] MEDS: MULTIVITAMIN 1 TABLET PO SCH (09:02)
[2018-09-24] MEDS: ASPIRIN 81 MG TABLET EC PO SCH (09:02)
[2018-09-24] MEDS: AMIODARONE 200 MG TABLET PO SCH (09:02)
[2018-09-24] MEDS: SODIUM CHLORIDE 0.9% 1,000 ML IV SCH (13:17)
[2018-09-24 15:55] VITALS: BP 133/80
[2018-09-24] MEDS ORDERED: WARFARIN 3 MG TABLET PO-COUM SCH (18:00)
[2018-09-24] MEDS: HEPARIN 25,000 UNITS/500ML PMX 500 ML IV PRN (19:42)
[2018-09-24 19:51] VITALS: BP 121/73
[2018-09-24] MEDS: FERROUS SULFATE 325 MG TABLET PO SCH (21:43)
[2018-09-24] MEDS: ATORVASTATIN 20 MG TABLET PO SCH (21:43)
[2018-09-25] VITALS (13 sets, daily range): BP systolic 105–164; BP diastolic 57–74
[2018-09-25] MEDS: SODIUM CHLORIDE 0.9% 1,000 ML IV SCH (02:12)
[2018-09-25 05:35] LABS: ALBUMIN 2.4 g/dL (3.4-5.0); ANION GAP 8 mmol/L (5-15); CALCIUM 8.5 mg/dL (8.5-10.1); CHLORIDE 110 mmol/L (98-107)
[2018-09-25 05:35] LABS: MEAN CORPUSCULAR HGB CONC 32.1 g/dL (32.4-35.8); MEAN CORPUSCULAR VOLUME 77.8 fL (80-100); MEAN PLATELET VOLUME 7.1 fL (7.4-10.4); PLATELET COUNT 521 x10^3/uL (130-400); RED BLOOD COUNT 2.56 x10^6/uL (3.82-5.3)
[2018-09-25 05:40] LABS: ALANINE AMINOTRANSFERASE 29 U/L (12-78); ALKALINE PHOSPHATASE 77 U/L (45-117); BILIRUBIN,TOTAL 0.3 mg/dL (0.2-1.0); CREATININE 0.74 mg/dL (0.55-1.02); TOTAL PROTEIN 5.2 g/dL (6.4-8.2)
[2018-09-25] MEDS: GUAIFENESIN 200 MG TABLET PO SCH ×4 (05:40→22:19)
[2018-09-25] MEDS ORDERED: PANTOPROZOLE 40MG TABLET PO SCH ×2 (06:00→09:00)
[2018-09-25 06:16] LABS: BASOPHILS # (AUTO) 0.06 x10^3/uL (0-0.1); BASOPHILS % (AUTO) 1 % (0-1); EOSINOPHILS # (AUTO) 0.34 x10^3/uL (0-0.4); EOSINOPHILS % (AUTO) 5 % (1-7); LYMPHOCYTES # (AUTO) 2.27 x10^3/uL (1-3.4); LYMPHOCYTES % (AUTO) 33 % (22-44); MD MORPH REVIEW ONLY; MONOCYTES # (AUTO) 0.78 x10^3/uL (0.2-0.8); MONOCYTES % (AUTO) 11 % (2-9); NEUTROPHILS # (AUTO) 3.46 x10^3/uL (1.8-6.8); NEUTROPHILS % (AUTO) 50 % (42-75)
[2018-09-25 07:02] LABS: ANISOCYTOSIS 1+; HYPOCHROMIA 1+; MICROCYTOSIS 1+; OVALOCYTES 1+; POLYCHROMASIA 1+
[2018-09-25 07:04] LABS: <PLATELET ESTIMATE> ADEQUATE; <PLT MORPHOLOGY> NORMAL PLT MORPH
[2018-09-25] MEDS: FERROUS SULFATE 325 MG TABLET PO SCH ×2 (07:49→22:19)
[2018-09-25] MEDS: MULTIVITAMIN 1 TABLET PO SCH (07:49)
[2018-09-25] MEDS: AMIODARONE 200 MG TABLET PO SCH (07:50)
[2018-09-25 07:52] LABS: INTERNATIONAL NORMALIZED RATIO 3.12 (0.93-1.1); PROTHROMBIN TIME 31.7 Seconds (9.6-11.5)
[2018-09-25] MEDS ORDERED: HEPARIN 25,000 UNITS/500ML PMX 500 ML IV PRN (14:30)
[2018-09-25] MEDS ORDERED: HEPARIN 5,000 UNITS/ML, 1ML IV PRN (14:30)
[2018-09-25] MEDS ORDERED: HEPARIN 5,000 UNITS/ML, 1ML IV ONE (14:30)
[2018-09-25 17:29] LABS: OCCULT BLOOD POSITIVE (NEGATIVE)
[2018-09-25] MEDS ORDERED: WARFARIN 3 MG TABLET PO-COUM ONE (18:00)
[2018-09-25] MEDS: ATORVASTATIN 20 MG TABLET PO SCH (22:20)
[2018-09-26 03:15] VITALS: BP 119/67
[2018-09-26 04:45] LABS: BASOPHILS # (AUTO) 0.09 x10^3/uL (0-0.1); BASOPHILS % (AUTO) 1 % (0-1); EOSINOPHILS # (AUTO) 0.23 x10^3/uL (0-0.4); EOSINOPHILS % (AUTO) 3 % (1-7); LYMPHOCYTES # (AUTO) 1.81 x10^3/uL (1-3.4); LYMPHOCYTES % (AUTO) 26 % (22-44); MD NO; MEAN CORPUSCULAR HEMOGLOBIN 25.7 pg (27.0-34.8); MEAN CORPUSCULAR HGB CONC 32.2 g/dL (32.4-35.8); MEAN CORPUSCULAR VOLUME 79.8 fL (80-100); MEAN PLATELET VOLUME 7.2 fL (7.4-10.4); MONOCYTES # (AUTO) 0.73 x10^3/uL (0.2-0.8); MONOCYTES % (AUTO) 10 % (2-9); NEUTROPHILS # (AUTO) 4.23 x10^3/uL (1.8-6.8); NEUTROPHILS % (AUTO) 60 % (42-75); PLATELET COUNT 496 x10^3/uL (130-400); RED BLOOD COUNT 3.05 x10^6/uL (3.82-5.3); RED CELL DISTRIBUTION WIDTH 18.7 % (9.6-15.2)
[2018-09-26 04:54] LABS: CALCIUM 8.5 mg/dL (8.5-10.1); CHLORIDE 109 mmol/L (98-107)
[2018-09-26 04:57] LABS: ANION GAP 8 mmol/L (5-15)
[2018-09-26] MEDS: GUAIFENESIN 200 MG TABLET PO SCH ×2 (06:00→11:08)
[2018-09-26 07:21] VITALS: BP 126/70
[2018-09-26 07:22] VITALS: BP 120/69
[2018-09-26 07:23] VITALS: BP 120/72
[2018-09-26] MEDS: FERROUS SULFATE 325 MG TABLET PO SCH (08:14)
[2018-09-26] MEDS: AMIODARONE 200 MG TABLET PO SCH (08:14)
[2018-09-26] MEDS: MULTIVITAMIN 1 TABLET PO SCH (08:14)
[2018-09-26] MEDS: ASPIRIN 81 MG TABLET EC PO SCH (08:15)
[2018-09-26] MEDS ORDERED: PANTOPROZOLE 40MG TABLET PO SCH (09:00)
[2018-09-26 10:48] LABS: INTERNATIONAL NORMALIZED RATIO 4.9 (0.93-1.1); PROTHROMBIN TIME 49.4 Seconds (9.6-11.5)
[2018-09-26 13:22] VITALS: BP 103/63
== END 2018-09-26 15:30 | disposition home or self-care (01) | DRG 812 ==
LOC: ED 10:07 → EDIP 12:06 → 4EST 12:56
PROVIDERS: ADMIT Hospitalist; ATTEND Hospitalist
PROC: 30233N1 Transfusion of Nonautologous Red Blood Cells into Peripheral Vein, Percutaneous Approach (ICD-10-PCS; principal; 2018-09-25)
DX: D50.9 Iron deficiency anemia, unspecified (principal); N39.0 Urinary tract infection, site not specified; J90 Pleural effusion, not elsewhere classified; I10 Essential (primary) hypertension; E78.5 Hyperlipidemia, unspecified; I48.0 Paroxysmal atrial fibrillation; Z90.49 Acquired absence of other specified parts of digestive tract; R79.89 Other specified abnormal findings of blood chemistry; Z79.01 Long term (current) use of anticoagulants; Z86.79 Personal history of other diseases of the circulatory system; Z90.710 Acquired absence of both cervix and uterus; Z95.2 Presence of prosthetic heart valve; T45.515A Adverse effect of anticoagulants, initial encounter; I11.0 Hypertensive heart disease with heart failure; R79.1 Abnormal coagulation profile; I50.9 Heart failure, unspecified; Z79.82 Long term (current) use of aspirin
CPT/HCPCS: 36415; 70450; 71045; 80048; 80053; 81001; 82272; 82607; 82728; 82746; 83540; 83550; 83605; 83735; 84100; 84439; 84443; 85014; 85018; 85025; 85520; 85610; 86850; 86900; 86923; 87040; 87086; 93005; 93306; 99285; G0378; J1644; J7030; P9016

== ENCOUNTER 2020-02-15 09:52 | Outpatient (CLI) | payer MEDICARE, OTHER ==
[~2020-02-15 09:52] MED LIST changes: -GUAI200T3 PO; +GUAI200T37 PO
[2020-02-15 12:55] LABS: PLATELET COUNT 367 x10^3/uL (130-400); RED BLOOD COUNT 3.97 x10^6/uL (3.82-5.3); RED CELL DISTRIBUTION WIDTH 20.3 % (9.6-15.2)
[2020-02-15 13:03] LABS: MEAN CORPUSCULAR HGB CONC 29.6 g/dL (32.4-35.8)
[2020-02-15 13:08] LABS: BASOPHILS # (AUTO) 0.12 x10^3/uL (0-0.1); BASOPHILS % (AUTO) 2 % (0-1); EOSINOPHILS # (AUTO) 0.29 x10^3/uL (0-0.4); EOSINOPHILS % (AUTO) 4 % (1-7); LYMPHOCYTES # (AUTO) 1.85 x10^3/uL (1-3.4); LYMPHOCYTES % (AUTO) 24 % (22-44); MD MORPH REVIEW ONLY; MONOCYTES # (AUTO) 0.51 x10^3/uL (0.2-0.8); MONOCYTES % (AUTO) 7 % (2-9); NEUTROPHILS # (AUTO) 4.95 x10^3/uL (1.8-6.8); NEUTROPHILS % (AUTO) 64 % (42-75)
[2020-02-15 13:09] LABS: ANISOCYTOSIS 2+; HYPOCHROMIA 2+; MICROCYTOSIS 2+; OVALOCYTES 1+; POLYCHROMASIA 1+
[2020-02-15 13:10] LABS: <PLATELET ESTIMATE> ADEQUATE; <PLT MORPHOLOGY> NORMAL PLT MORPH
[2020-02-15 13:30] LABS: % IRON SATURATION 4 % (20-55); IRON LEVEL 20 mcg/dL (50-170); TOTAL IRON BINDING CAPACITY 455 mcg/dL (250-450)
[2020-02-16] MEDS ORDERED: METO50TA4 PO (09:51)
== END 2020-02-15 23:59 | disposition home or self-care (01) ==
LOC: CFH 09:52
PROVIDERS: ATTEND Family Medicine
DX: D64.9 Anemia, unspecified (principal)
CPT/HCPCS: 36415; 83540; 83550; 85025

== ENCOUNTER → 2020-07-20 | Outpatient (CLI) | payer MEDICARE, OTHER ==
[~2020-07-20] MED LIST changes: +METO50TA4 PO; -WARF5TAB PO-COUM; +WARF5TAB2 PO-COUM
== END | disposition home or self-care (01) ==
LOC: CFH 08:46
PROVIDERS: ATTEND Internal Medicine Cardiovascular Disease
DX: I08.1 Rheumatic disorders of both mitral and tricuspid valves (principal); I10 Essential (primary) hypertension; R42 Dizziness and giddiness
CPT/HCPCS: 93306

== ENCOUNTER → 2020-09-18 | Outpatient (CLI) | payer MEDICARE, OTHER | END | disposition home or self-care (01) | LOC: CFH 11:23 | PROVIDERS: ATTEND Family Medicine | DX: Z12.31 Encounter for screening mammogram for malignant neoplasm of breast (principal) | CPT/HCPCS: 77067 ==

== ENCOUNTER 2021-07-13 08:38 | Outpatient (CLI) | payer MEDICARE, OTHER ==
[~2021-07-13 08:38] MED LIST changes: +REGADENOSON 0.4 MG/5 ML SYRINGE ONE; +SULF-23 PO; -SULF1TAB24 PO
[2021-07-13] MEDS ORDERED: AMINOPHYLLINE 25 MG/ML, 10ML ONE (11:43)
== END 2021-07-13 23:59 | disposition home or self-care (01) ==
LOC: CFH 08:38
PROVIDERS: ATTEND Internal Medicine Cardiovascular Disease
DX: I21.29 ST elevation (STEMI) myocardial infarction involving other sites (principal); I25.9 Chronic ischemic heart disease, unspecified; I35.0 Nonrheumatic aortic (valve) stenosis; I25.10 Atherosclerotic heart disease of native coronary artery without angina pectoris
CPT/HCPCS: 78452; 93017; A9502; J0280; J2785